=== PATIENT | male | born 1990 | race Caucasian/White ===

== ENCOUNTER → 2021-07-05 | Outpatient (CLI) | payer OTHER ==
[2016-07-03 09:13] VITALS: BP 116/63
[~2021-07-05] MED LIST: CYCL10TA19 PO; GADOTERATE 7.5 MMOL/15ML VIAL. IVP ONE
--- NOTE | 2021-07-05 13:30 | KCIC ---
EXAM: Lumbar spine MRI without and with contrast. HISTORY: Lower back pain. Weakness. TECHNIQUE: Multiplanar, multisequence magnetic resonance imaging of the lumbar spine was performed wi thout and with contrast. COMPARISON: CT dated 06/09/2020. FINDINGS: There is minimal retrolisthesis of L5 on S1. There is endplate remodeling, disc space narro wing and disc desiccation at this level. There are few tiny endplate Schmorl's nodes. There is no lurdes picious osseous lesion. There is no acute or subacute fracture. The conus terminates at the superior aspect of L1. At L1-L2, there is no stenosis. At L2-L3, there is no stenosis. At L3-L4, there is mild bilateral foraminal stenosis. At L4-L5, there is mild facet arthropathy. There is mild bilateral foraminal stenosis. At L5-S1, there is a broad-based right paracentral disc protrusion with minimal inferior extrusion watkins perimposed on a disc bulge and endplate remodeling. There is mild bilateral facet arthropathy. There is slight retrolisthesis. There is mild bilateral foraminal stenosis. There is slight narrowing of th e right lateral recess and near abutment the traversing right S1 nerve root. IMPRESSION: Degenerative change at the lower lumbar levels, described above. This results in mild velasquez ateral foraminal stenosis and narrowing of the right lateral recess at L5-S1 and mild bilateral paul inal stenosis at L4-L5 and L3-L4. Electronically signed by: Sharlene Bello MD (07/05/2021 1:28 PM) [id number]
== END ==
LOC: KCIC MRI 12:41
PROVIDERS: ATTEND Physical Medicine & Rehabilitation Pain Medicine
DX: M47.817 Spondylosis without myelopathy or radiculopathy, lumbosacral region (principal); M51.27 Other intervertebral disc displacement, lumbosacral region; M48.8X7 Other specified spondylopathies, lumbosacral region; M48.07 Spinal stenosis, lumbosacral region; R53.1 Weakness; R20.0 Anesthesia of skin
CPT/HCPCS: 72158; A9575